=== PATIENT | female | born 1975 | race Hispanic/Latino ===

== ENCOUNTER 2025-05-04 13:49 | Emergency (ER) | payer SELFPAY ==
[~2025-05-04 13:49] MED LIST: Iopamidol-370 76% 500 ML MDV (1 ML CHARGE) ONE
[2025-05-04] MEDS ORDERED: Ketorolac Tromethamine 30 MG (1 mL) VIAL ONE (14:38)
[2025-05-04 14:58] LABS: #Basophils 0.05 10x3/uL (0.0-0.2); #Eosinophils 0.17 10x3/uL (0.0-0.7); #Monocytes 0.47 10x3/uL (0.11-0.59); #Neutrophils 4.26 10x3/uL (1.40-6.50); %Basophils 0.7 % (0.0-1.0); %Eosinophils 2.5 % (0.0-10.0); %Lymphocytes 26.9 % (21.0-51.0); %Monocytes 6.9 % (0.0-10.0); %Neutrophils 62.7 % (42.0-75.0); Hematocrit 41.0 % (36.0-47.0); Hemoglobin 12.9 g/dL (12.0-16.0); Mean Corpuscular Hemoglobin 28.1 pg (27.0-31.0); Mean Corpuscular Volume 89.3 fL (78.0-98.0); Platelet Count 280 10x3/uL (130-400); Red Blood Cell (RBC) Count 4.59 mill/uL (4.20-5.40); White Blood Cell (WBC) Count 6.80 10x3/uL (4.8-10.8)
[2025-05-04] MEDS ORDERED: Lidocaine 1% w/Epinephrine 1:100K 20 ML VIAL ONE (15:35)
[2025-05-04 15:48] LABS: ALT (SGPT) 16 U/L (Less than 34); AST (SGOT) 35 U/L (11-34); Albumin 4.2 g/dL (3.1-4.5); Alkaline Phosphatase 72 U/L (40-110); Anion Gap 18 mmol/L (10-20); BUN (Urea Nitrogen) 19 mg/dL (7.0-18.7); Bilirubin, Total 0.2 mg/dL (0.3-1.2); Calc. Creatinine Clearance 0 mL/min (70-130); Calcium 8.9 mg/dL (7.8-10.44); Carbon Dioxide 19 mmol/L (22-29); Chloride 106 mmol/L (98-107); Globulin 3.2 g/dL (2.4-3.5); Glucose 121 mg/dL (70-105); Potassium 4.1 mmol/L (3.5-5.1); Sodium 139 mmol/L (136-145)
[2025-05-04] MEDS ORDERED: Boostrix 0.5 ML (Tdap) VIAL (>/=7 yrs of age) ONE (15:54)
== END 2025-05-04 16:28 | disposition home or self-care (01) ==
LOC: ERS 13:49
DX: L02.212 Cutaneous abscess of back [any part, except buttock and flank] (principal); I10 Essential (primary) hypertension; Z23 Encounter for immunization
CPT/HCPCS: 10060; 71260; 80053; 85025; 86141; 90471; 90715; 96374; J1885; Q9967